=== PATIENT | female | born 1940 | race Caucasian/White ===

== ENCOUNTER 2020-05-06 15:59 | Outpatient (CLI) | payer MEDICARE, SELFPAY ==
--- NOTE | ~2020-05-06 | XR_ITS ---
XR hip BI 2V w AP pelvis 05/06/2020 16:28 Indication: Bilateral hip pain Procedure: AP pelvis and 2 views of each hip Comparison: No prior studies for comparison. Findings: Pelvic rings are intact. Sacral foramen are symmetric. No fracture or traumatic malalignmen t. Hips are symmetric. No significant joint space narrowing. No focal soft tissue abnormality. No rad iopaque foreign bodies. Impression: 1: No acute bone or joint abnormality. Reviewed, dictated and finalized at location A. Impression: 1: No acute bone or joint abnormality.
== END 2020-05-06 16:00 | disposition home or self-care (01) ==
LOC: CHSIMG 16:05
PROVIDERS: PCP Physician Assistant; Visit Provider Physician Assistant
DX: M25.551 Pain in right hip (principal)
CPT/HCPCS: 73521

== ENCOUNTER 2021-06-13 01:28 | Emergency (ER) | payer MEDICARE, SELFPAY ==
--- NOTE | 2021-06-13 02:12 | ED.CPR ---
HPI - CPR General Chief Complaint: Cardiac Arrest/CPR Stated Complaint: cardiac arrest Source: EMS Mode of arrival: EMS Limitations: clinical condition History of Present Illness HPI narrative: Son says that family member was going by her room and found her on the floor. Son reported she had been ill since 1 day prior feeling weak nauseous. EMS arrived loaded the patient. EMS states that she appeared mccartney ashen. After loading her into the ambulance they lost poles and spontaneous respiration immediately a mechanical thumb for for CPR was placed. An IJ peripheral line was successfully placed she was given 1 dose of atropine and 2 doses of epinephrine EN route. of note some members of the family in the household are positive for COVID. complaint: collapsed during activity Onset (ago): minute(s) (15) Timing confirmed by: other (EMS) Place: home Bystander CPR performed: No AED applied by bystander/intermediate frame tender: No Initial findings in the field: lethargic, agonal and sinus rhythm ROSC in the field: No Associated injuries: No Treatments prior to arrival: BMV, chest compressions, epinephrine mgs # (2 doses) and atropine mgs # (1 dose) Related Data Home Medications Medication Instructions Recorded Confirmed Unable to Obtain Home Medications 06/13/21 06/13/21 Allergies Allergy/AdvReac Type Severity Reaction Status Date / Time Unable to Assess Allergy Verified 06/13/21 02:07 Review of Systems Review of Systems: ROS unobtainable: Yes unobtainable due to medical condition [facility] Past Medical History Medical History (Updated 06/13/21 @ 02:26 by Peter Branch MD) CVA (cerebral vascular accident) Hypertension Seizure disorder Social History Social History (Updated 06/13/21 @ 02:16 by Peter Branch MD) Smoking status: Former smoker Exam Const: General: other ( unresponsive) Orientation/consciousness: patient obtunded Eyes: General: appearance normal, both eyes and all related structures Pupils: Dilated pupils bilaterally and Fixed pupils bilaterally Neck: Neck: normal visual inspection Chest: Chest palpation & inspection: normal inspection of the chest Resp: Auscultation: breath sounds absent ( no spontaneous respirations breast given with BVM) bilateral Cardio: Rate: abnormal rate Rhythm: abnormal rhythm Other: good massaged pulse with compression GI: GI Palp: Yes Soft to palpation Auscultation: absent bowel sounds Skin: General skin exam: mottling and pallor ( ashen) Neuro: Other: unresponsive Course Course Emergency Course: patient arrived with external mechanical thumb for in place delivering CPR. An IJ line had been obtained. In the process of ACLS algorithm patient given total of 6 doses of epinephrine 1 had been put down the endotracheal tube due to loss of the right IJ line during intubation and securing of the ET tube. Patient was intubated without difficulty. CPR continued with intermittent epinephrine. Shortly after that the dose of epinephrine was given down the ET tube and IO line had been established and epinephrine given through the IO. Patient had no spontaneous respirations or heart rate. Patient found to have PE a with pupils fixed and dilated. Procedures Intubation Intubation #1: Intubation Date: 06/13/21 Intubation Time: 01:43 sedative: none Laryngoscope: fiber optic video scope Assist Device Used: Bougie Tube Size (cm): 7.0 Method of Intubation: orotracheal Number of Attempts: 1 Tube Secured Depth (cm): 22 Tube Secured Location: teeth Tube Placement Confirmation: visualized tube passing through cords and equal breath sounds bilaterally Patient Tolerated Procedure: no complications Intubation Complications: none IO Left Tibia: IO Date: 06/13/21 Local Anesthetic: none IO Instrument Used to Penetrate the Cortex: battery powered IO drill Post Procedure: ea
[2021-06-13 02:32] LABS: SARS-CoV-2 Ag Positive (Negative)
== END 2021-06-13 02:03 | disposition expired ==
PROVIDERS: Emergency Provider Emergency Medicine; PCP Physician Assistant
DX: I46.9 Cardiac arrest, cause unspecified (principal); U07.1 COVID-19; I10 Essential (primary) hypertension; G40.909 Epilepsy, unspecified, not intractable, without status epilepticus; Z86.73 Personal history of transient ischemic attack (TIA), and cerebral infarction without residual deficits; Z87.891 Personal history of nicotine dependence
CPT/HCPCS: 31500; 36680; 87426; 92950; 99285; C9803